=== PATIENT | male | born 1950 | race African-American/Black ===

== ENCOUNTER 2020-12-22 06:32 | Observation (INO) | payer MEDICARE ==
[~2020-12-22] VITALS: Ht 185.4 cm; Wt 128.4 kg
[~2020-12-22 06:32] MED LIST: AMLODIPINE-BEN1 EAC5 PEG; LYRICA25 MG PO; PRAVACHOL20 MG PO; ULTRAM50 MG PO; VOLTAREN-XR100 MG PO
[2020-12-22] MEDS ORDERED: CEFAZOLIN SOD 1 GM/NS 50ML 100 ML IV ONE (06:54)
[2020-12-22] MEDS ORDERED: CELECOXIB 200 MG CAP ONE (06:55)
[2020-12-22] MEDS ORDERED: GABAPENTIN 300 MG CAP ONE (06:55)
[2020-12-22] MEDS ORDERED: DEXAMETHASONE SOD PHOS 10 MG/1 ML VIAL ONE (06:55)
[2020-12-22] MEDS ORDERED: ROPIVACAINE 246.25 MG, EPINEPHRINE HCL 1:1000 1ML 0.5 MG, CLONIDINE HCL 0.08 MG, KETORO... INJ ONE ×5 (07:00)
[2020-12-22] MEDS ORDERED: VANCOMYCIN HCL 1,000 MG ONE (07:47)
[2020-12-22] MEDS ORDERED: SODIUM CHLORIDE 0.9% 500ML 500 ML ONE (07:47)
[2020-12-22] MEDS ORDERED: TRANEXAMIC ACID 1,000 MG/10 ML ML ONE (07:47)
[2020-12-22] MEDS ORDERED: BUPIVACAINE 7.5MG/ML /DEXTROSE 82.5MG/ML 2 ML AMP INJ ONE (07:48)
[2020-12-22] MEDS ORDERED: FENTANYL CITRATE/PF 100MCG/2 ML INJ ONE (11:24)
[2020-12-22] MEDS ORDERED: KETOROLAC TROMETHAMINE 30 MG/ML VIAL IV PRN (12:45)
[2020-12-22] MEDS ORDERED: ACETAMINOPHEN 650 MG SUPP PR PRN (12:45)
[2020-12-22] MEDS ORDERED: HYDROCODONE/APAP 5MG-325MG TAB PO PRN (12:45)
[2020-12-22] MEDS ORDERED: HYDROCODONE/APAP 7.5MG-325MG 1 EA TAB PO PRN (12:45)
[2020-12-22] MEDS ORDERED: DIPHENHYDRAMINE HCL INJ 50 MG/ML VIAL IV PRN (12:45)
[2020-12-22] MEDS ORDERED: DOCUSATE SODIUM 100 MG CAP PO PRN (12:45)
[2020-12-22] MEDS: SODIUM CHLORIDE 0.9% 1000ML 1,000 ML IV SCH ×2 (12:45→22:45)
[2020-12-22] MEDS ORDERED: ONDANSETRON HCL INJ 2MG/ML 2ML 2 MG/ML VIAL IV PRN (12:45)
[2020-12-22] MEDS ORDERED: ZOLPIDEM TARTRATE 5 MG TAB PO PRN (12:45)
[2020-12-22 15:00] VITALS: BP 127/85
[2020-12-22] MEDS: ASPIRIN 325 MG TAB PO SCH (17:00)
[2020-12-22] MEDS: CEFAZOLIN SOD 1 GM/NS 50ML 50 ML IV SCH (17:00)
[2020-12-22] MEDS: CELECOXIB 200 MG CAP PO SCH (17:00)
[2020-12-22] MEDS ORDERED: SODIUM CHLORIDE 0.9% 250ML 250 ML ONE (17:39)
[2020-12-22 17:49] VITALS: BP 127/85
[2020-12-22] MEDS ORDERED: ONDANSETRON HCL INJ 2MG/ML 2ML 2 MG/ML VIAL ONE (19:41)
[2020-12-22] MEDS ORDERED: GLYCOPYRROLATE INJ 0.2 MG/ML VIAL ONE (19:41)
[2020-12-22] MEDS ORDERED: ROCURONIUM BROMIDE 10 MG/ML 5ML VIAL IV ONE (19:41)
[2020-12-22] MEDS ORDERED: SEVOFLURANE INHAL SOLN 250 ML PEN BTL ONE (19:41)
[2020-12-22] MEDS ORDERED: NEOSTIGMINE 1 MG/ML 10ML VIAL ONE (19:41)
[2020-12-22] MEDS ORDERED: LIDOCAINE HCL 2% LOCAL INJ 5 ML SDV VIAL INJ ONE (19:41)
[2020-12-22] MEDS ORDERED: POVIDONE IODINE 0.05% 0.05 % ML PO ONE (19:41)
[2020-12-22] MEDS ORDERED: DEXAMETHASONE SOD PHOS INJ 4 MG/ML VIAL ONE (19:41)
[2020-12-22] MEDS ORDERED: PROPOFOL IV EMULSION 10 MG/ML 20 ML VIAL ONE (19:41)
[2020-12-22 20:00] VITALS: BP 119/83
[2020-12-23] VITALS: BP 115/80
[2020-12-23] MEDS: CEFAZOLIN SOD 1 GM/NS 50ML 50 ML IV SCH ×2 (01:13→08:36)
[2020-12-23 04:00] VITALS: BP 123/80
[2020-12-23 05:49] LABS: HEMATOCRIT 35.4 % (38.2-49.6); HEMOGLOBIN 11.4 g/dL (14.0-18.0)
[2020-12-23 07:52] VITALS: BP 117/77
[2020-12-23] MEDS: ASPIRIN 325 MG TAB PO SCH (08:36)
[2020-12-23] MEDS: CELECOXIB 200 MG CAP PO SCH (08:36)
[2020-12-23] MEDS ORDERED: PREGABALIN 25 MG CAP PO SCH (09:00)
[2020-12-23] MEDS ORDERED: AMLODIPINE BESYLATE 10 MG TAB PO SCH (09:00)
[2020-12-23 11:30] VITALS: BP 127/71
[2020-12-23] MEDS ORDERED: ACETAMINOPHEN 1000 MG/100 ML IV PRN (12:45)
[2020-12-23] MEDS ORDERED: PRAVASTATIN 20 MG TAB PO SCH (21:00)
== END 2020-12-23 11:53 | disposition home or self-care (01) ==
LOC: OR 06:32 → PACU V 12:54 → MED/SURG 14:51
PROVIDERS: ADMIT Specialist; ATTEND Specialist
DX: M16.11 Unilateral primary osteoarthritis, right hip (principal); Z20.822 Contact with and (suspected) exposure to COVID-19; I10 Essential (primary) hypertension; Z87.891 Personal history of nicotine dependence; E66.01 Morbid (severe) obesity due to excess calories; Z68.37 Body mass index [BMI] 37.0-37.9, adult
CPT/HCPCS: 27130; 36415; 71046; 72170; 85014; 85018; 97110; 97116 ×2; 97161; 97530; C1713 ×3; C1776 ×2; G0378 ×2; J0171; J0690 ×2; J1100 ×2; J1885; J2001; J2405; J2704; J2710; J2795; J3010; J3370; J7040; J7050; U0002

== ENCOUNTER → 2022-12-08 | Outpatient (CLI) | payer MEDICARE | LOC: NM 08:15 | PROVIDERS: ATTEND Urology | DX: C61 Malignant neoplasm of prostate (principal) | CPT/HCPCS: 78306; A9503 ==